=== PATIENT | male | born 1980 | race Two or more races ===

== ENCOUNTER 2025-02-09 19:43 | Inpatient (IN) | payer OTHER, MEDICAID ==
[~2025-02-09] VITALS: Ht 175.3 cm; Wt 72.7 kg
[2025-02-09] MEDS: PIPERACILLIN-TAZOB 3.375GM 100 ML IV ONE (00:10)
[2025-02-09 20:38] LABS: Hematocrit 39.9 % (41.0-53.0); Hemoglobin 13.2 g/dL (13.5-17.5); Mean Corpuscular Hemoglobin 27.7 pg (28.0-32.0); Mean Corpuscular Volume 83.8 fL (80.0-100.0); Nucleated Red Blood Cells % 0.0 %
[2025-02-09] MEDS: HYDROcodone-ACET 10/325MG TAB PO ONE (20:44)
[2025-02-09 20:47] LABS: Chloride 101 mmol/L (98-107); Potassium 3.6 mmol/L (3.5-5.1); Sodium 137 mmol/L (136-145)
[2025-02-09 20:48] LABS: Anion Gap 7 (5-15); Calcium 9.3 mg/dL (8.7-10.4); Carbon Dioxide 29 mmol/L (20-31)
[2025-02-09 20:53] LABS: BUN/Creatinine Ratio 14.2 (10.0-20.0); Blood Urea Nitrogen 18 mg/dL (9-23); Glucose 99 mg/dL (74-106)
[2025-02-09] MEDS: IOHEXOL 300 MG/ML 100ML BOTTLE IJ ONE (21:09)
--- NOTE | 2025-02-09 21:45 | DVH ---
COMPUTERIZED TOMOGRAPHY RIGHT LOWER EXTREMITY WITH CONTRAST REASON FOR EXAM: Possible septic knee joint COMPARISON: None TECHNIQUE: The exam was performed on a Multidetector scanner. Spiral scans were acquired from the dis aron right femoral diaphysis to the distal right tibial metaphysis after administration of IV contrast . 2-D coronal and sagittal reformatted images were provided. Radiation optimization: All CT scans at this facility use at least one of these dose optimization techniques: Automated exposure control mA a nd/or kV adjustment per patient size (includes targeted exams where dose is matched to clinical indic ation) or iterative reconstruction. RADIATION DOSE: CTDI: 8 mGy DLP: 485 mGy-cm FINDINGS: There is severe prepatellar bursitis. There is mild diffuse subcutaneous edema from the distal thigh to the distal calf. No other fluid collection is identified. There is no knee effusion. No acute osse ous abnormality is identified. IMPRESSION: Severe prepatellar bursitis. Given the large amount of fluid within the bursa, blind sampling by palp ation could be performed if there is clinical concern for infection. No knee effusion. No evidence of septic knee joint.
--- NOTE | 2025-02-09 22:19 | ED.PDOC ---
Musculoskeletal HPI Comments This patient is a healthy 44-year-old male who arrives to the ED today for evaluation of right knee pain and swelling that began yesterday and has continued. Patient states the event was spontaneous. Patient denies any recent trauma to the knee. Patient arrives with a an angry and swollen right knee. Vital signs were stable. Chief Complaint: Lower Extremity Time Seen by MD: 19:50 Reviewed Notes: Nurses Notes Allergies: Coded Allergies: No Known Drug Allergy (Verified Allergy, Unknown, 02/09/25) Information Source: Patient, Friend Mode of Arrival: Ambulatory Location: Right Extremity Location: Knee Timing: Days Prehospital treatment: None Severity: Moderate Able to Move Extremity: Yes Bear Weight: Limited Pain: Moderate Hand Dominance: Right Mechanism: Spontaneous Circumstances: Spontaneous Onset of Symptoms: Spontaneous Symptoms: Swelling, Pain DVT Risk Factors: NONE Past Medical History PAST MEDICAL HISTORY: Denies Surgical History: Denies all surgeries Family History Family History: Reviewed,noncontributory to illness, No family hx of Cancer, No family hx of DM, No family hx of Heart lalit, No family hx of HTN, No family hx ofKidney lalit, No family hx of Liver lalit, No family hx of Lung lalit, No family hx of Stroke Social History Smoker: Non-Smoker Alcohol: Denies ETOH Use Drugs: Denies Drug Use Lives In: Home Constitutional: denies: chills, diaphoresis, fatigue, fever, malaise, sweats, weakness, others EENTM: denies: blurred vision, double vision, ear bleeding, ear discharge, ear drainage, ear pain, ear ringing, eye pain, eye redness, hearing loss, mouth pain, mouth swelling, nasal discharge, nose bleeding, nose congestion, nose pain, photophobia, tearing, throat pain, throat swelling, voice changes, others Respiratory: denies: cough, hemoptysis, orthopnea, SOB at rest, shortness of breath, SOB with excertion, stridor, wheezing, others Cardiovascular: denies: chest pain, dizzy spells, diaphoresis, Dyspnea on exertion, edema, irregular heart beat, left arm pain, lightheadedness, palpitations, PND, syncope, others Gastrointestinal: denies: abdomen distended, abdominal pain, blood streaked bowels, constipated, diarrhea, dysphagia, difficulty swallowing, hematemesis, melena, nausea, poor appetite, poor fluid intake, rectal bleeding, rectal pain, vomiting, others Genitourinary: denies: burning, dysuria, flank pain, frequency, hematuria, incontinence, penile discharge, penile sore, pain, testicle pain, testicle swelling, urgency, others Neurological: denies: dizziness, fainting, headache, left sided numbness, left sided weakness, numbness, paresthesia, pre-existing deficit, right sided numbness, right sided weakness, seizure, speech problems, tingling, tremors, weakness, others Musculoskeletal: reports: others (Right knee pain, swelling and warmth); denies: back pain, gout, joint pain, joint swelling, muscle pain, muscle stiffness, neck pain Integumetry: denies: bruises, change in color, change in hair/nails, dryness, laceration, lesions, lumps, rash, wounds, others Allergic/Immunocompromised: denies: Difficulty Healing, Frequent Infections, Hives, Itching, others Hematologic/Lymphatic: denies: anemia, blood clots, easy bleeding, easy bruising, swollen glands, others Endocrine: denies: excessive hunger, excessive sweating, excessive thirst, excessive urination, flushing, intolerance to cold, intolerance to heat, unexplained weight gain, unexplained weight loss, others Psychiatric: denies: anxiety, bipolar disorder, depression, hopeless, panic disorder, schizophrenia, sleepless, suicidal, others Physical Exam General Appearance: Moderate Distress (Patient is a moderate distress due to right knee pain concerns.), Normal HEENT: Normal ENT Inspection, Pharynx Normal, TMs Normal Neck: Full Range of Motion, Non-Tender, Normal, Normal Inspection Respiratory: Chest Non-Tender, Lungs Clear, No Accessory Muscle Use, No Respiratory Distress, Normal Breath Sounds Cardiovascular: No Edema, No JVD, No Murmur, No Gallop, Normal Peripheral Pulses, Regular Rate/Rhythm Breast Exam: Deferred Gastrointestinal: No Organomegaly, Non Tender, No Pulsatile Mass, Normal Bowel Sounds, Soft Genitalia: Deferred Pelvic: Deferred Rectal: Deferred Extremities: Other (Right knee region displays significant edema from the distal thigh to the proximal and medial calf extending throughout the joint region of the knee. Erythema noted throughout. Tender to palpation throughout. Significant reduced range of motion. Patient can not bear weight. No lymphangitis.) Neurologic: Alert Cerebellar Function: NOT DONE Reflexes: NOT DONE Skin: Dry, Normal Color, Warm Lymphatic: No Adenopathy Was a procedure done? Was a procedure done?: No Differential Diagnosis EXT Differential Diagnosis: Cellulitis, Fracture, Sprain, Strain, Septic, Bursitis X-Ray, Labs, Meds, VS Vital Signs Date Time Temp Pulse Resp B/P (MAP) Pulse Ox O2 Delivery O2 Flow Rate FiO2 02/09/25 20:44 103 18 100 Room Air 02/09/25 20:44 97.6 103 18 116/79 (91) 100 97.6 02/09/25 19:51 98.1 101 16 120/78 100 98.1 Lab Test 02/09/25 20:28 Range/Units White Blood Count 12.5 H 4.4-10.8 10^3/uL Red Blood Count 4.76 4.5-5.90 10^6/uL Hemoglobin 13.2 L 13.5-17.5 g/dL Hematocrit 39.9 L 41.0-53.0 % Mean Corpuscular Volume 83.8 80.0-100.0 fL Mean Corpuscular Hemoglobin 27.7 L 28.0-32.0 pg Mean Corpuscular Hemoglobin Concent 33.0 32.0-36.0 g/dL Red Cell Distribution Width 13.3 11.8-14.3 % Platelet Count 213 140-450 10^3/uL Mean Platelet Volume 7.0 6.9-10.8 fL Neutrophils (%) (Auto) 83.3 H 37.0-80.0 % Lymphocytes (%) (Auto) 7.6 L 10.0-50.0 % Monocytes (%) (Auto) 7.8 0.0-12.0 % Eosinophils (%) (Auto) 1.2 0.0-7.0 % Basophils (%) (Auto) 0.1 0.0-2.0 % Neutrophils # (Auto) 10.5 H 1.6-8.6 10 ^3/uL Lymphocytes # (Auto) 0.9 0.4-5.4 10 ^3/uL Monocytes # (Auto) 1.0 0-1.3 10 ^3/uL Eosinophils # (Auto) 0.1 0-0.8 10 ^3/uL Basophils # (Auto) 0 0-0.2 10 ^3/uL Nucleated Red Blood Cells 0.0 % Sodium Level 137 136-145 mmol/L Potassium Level 3.6 3.5-5.1 mmol/L Chloride Level 101 98-107 mmol/L Carbon Dioxide Level 29 20-31 mmol/L Anion Gap 7 5-15 Blood Urea Nitrogen 18 9-23 mg/dL Creatinine 1.27 0.700-1.30 mg/dL Glomerular Filtration Rate Calc 72 >90 mL/min BUN/Creatinine Ratio 14.2 10.0-20.0 Serum Glucose 99 74-106 mg/dL Lactic Acid Level 1.3 0.4-2.0 mmol/L Calcium Level 9.3 8.7-10.4 mg/dL X-Ray, Labs, Meds, VS Comment All studies performed the ED were evaluated by me personally. Serum studies revealed a mild leukocytosis with a left shift noted. CT with contrast of the right lower extremity revealed a severe prepatellar bursitis with mild diffuse subcutaneous edema from the distal thigh to the distal calf. Due to the early onset of elevated white blood cell count and has significant joint effusion, patient will be admitted for IV antibiotics and possible orthopedic evaluation for bursal aspiration. Time of 1ST Reevaluation: 22:18 Reevaluation 1ST: Improved Consultation: PCP Patient Education/Counseling: Diagnosis, Treatment Family Education/Counseling: Diagnosis, Treatment Sepsis Sepsis Reasesment Focused Exam Orders: Laboratory Tests 02/09/25 20:28: Lactic Acid Level 1.3 Recent Procedure: No On Antibiotic Therapy: No Respiratory Rate >20: No Heart Rate >90: No Temp<36 C (96.8 F) or >38.3 C: No SBP <90 or MAP <65 mmHG: No New Acute Mental Status Change: No Is the patient on CPAP, BIPAP,: No IV fluid given: No Departure 1 Departure Time of Disposition: 22:18 Impression: Primary Impression: Bursitis of right knee Additional Impression: Leukocytosis Disposition: ADMITTED INPATIENT Condition: Stable Discharged With: Self Critical Care Note Critical Care Time?: No Stability Stability form required: No Heart Score Heart Score: Heart Score Response (Comments) Value History N/A 0 EKG N/A 0 Age N/A 0 Risk Factors N/A 0 Troponin N/A 0 Total 0 CHAS MCWILLIAMS PAC Feb 09, 2025 22:19
--- NOTE | 2025-02-09 22:59 | DVHHP2 ---
History of Present Illness Reason for Visit: Bursitis of right knee History of Present Illness The patient is a 44-year-old male who denies past medical history presented to [facility] ED with complaint of right knee pain. Patient reports he has been experiencing severe right knee pain associated with redness and sw elling, rating pain 9/10 numeric scale, getting worse that prompted this visit. Patient was seen and evaluated in the ED, laboratory data shows WBC 12.5, hemoglobin 13.2, hematocrit 39.9, platelets 213, sodium 137, potassium 3.6, BUN 18, creatinine 1.27, GFR 72, glucose 99, calcium 9.3, blood pressure 116/79, heart rate 102, temperature 97.6 F, O2 saturation 99% on room air. Right lower extremity CT revealing severe prepatellar bursitis, given the large amount of fluid within the bursa. Patient was started on IV antibiotic regimen Zosyn, please see medication orders section in the computer. On my assessment, patient denied chest pain, no headache, dizziness, diaphoresis, shortness of breaths, nausea, vomiting, fever, no chills. Patient was admitted for further evaluation and medical management. Past Medical History Denies past medical history Past Surgical History Denies all surgeries Family History Reviewed, noncontributory to the management of this case. Past Social History The patient lives at home, denies smoking, alcohol or illicit drugs abuse. Review of Systems Constitutional: No: Fever, Chills, Sweats, Weakness, Malaise, Other Eyes: No: Pain, Vision change, Conjunctivae inflammation, Eyelid inflammation, Other, Redness ENT: No: Ear pain, Ear discharge, Nose pain, Nose discharge, Nose congestion, Mouth pain, Mouth swelling, Throat pain, Throat swelling, Other Respiratory: No: Cough, Dry, Shortness of breath, SOB with excertion, Wheezing, Hemoptysis, Pleuritic Pain, Sputum, Wheezing, Other Cardiovascular: No: Chest Pain, Palpitations, Orthopnea, Paroxysmal Noc. Dyspnea, Edema, Lt Headedness, Other Gastrointestinal: No: Nausea, Vomiting, Abdominal Pain, Diarrhea, Constipation, Melena, Hematochezia, Other Genitourinary: No Dysuria, No Frequency, No Incontinence, No Hematuria, No Retention, No Other Musculoskeletal: other (Right knee pain, swelling and warmth.); No: neck pain, shoulder pain, arm pain, back pain, hand pain, leg pain, foot pain Skin: No: Rash, Lesions, Jaundice, Bruising, Other Neurological: No: Weakness, Numbness, Incoordination, Change in speech, Confusion, Seizures, Other Allergies: Coded Allergies: No Known Drug Allergy (Verified Allergy, Unknown, 02/09/25) Exam Vital Signs Vital Signs Date Time Temp Pulse Resp B/P (MAP) Pulse Ox O2 Delivery O2 Flow Rate FiO2 02/09/25 20:44 103 18 100 Room Air 02/09/25 20:44 97.6 116/79 (91) 97.6 General Appearance: Alert, Oriented X3, Cooperative, No acute distress HEENT: Atraumatic, PERRLA, EOMI, Mucous membr. moist/pink Respiratory: Clear to auscultation, Normal air movement Cardiovascular: Regular rate, Normal S1, Normal S2, No murmurs Abdominal: Normal bowel sounds, Soft, No tenderness, No hepatospenomegaly, No masses Extremities: No clubbing, No cyanosis, No edema, Normal pulses, Other (Right knee swelling/tenderness) Skin: No rashes, No breakdown, No significant lesion Neuro: Normal speech, Normal tone, Sensation intact, Cranial nerves 3-12 NL, Reflexes 2+, Other (Unsteady gait) Psych/Mental Status: Mental status NL, Mood NL Labs/Xrays Labs Test 02/09/25 20:28 Range/Units White Blood Count 12.5 H 4.4-10.8 10^3/uL Red Blood Count 4.76 4.5-5.90 10^6/uL Hemoglobin 13.2 L 13.5-17.5 g/dL Hematocrit 39.9 L 41.0-53.0 % Mean Corpuscular Volume 83.8 80.0-100.0 fL Mean Corpuscular Hemoglobin 27.7 L 28.0-32.0 pg Mean Corpuscular Hemoglobin Concent 33.0 32.0-36.0 g/dL Red Cell Distribution Width 13.3 11.8-14.3 % Platelet Count 213 140-450 10^3/uL Mean Platelet Volume 7.0 6.9-10.8 fL Neutrophils (%) (Auto) 83.3 H 37.0-80.0 % Lymphocytes (%) (Auto) 7.6 L 10.0-50.0 % Monocytes (%) (Auto) 7.8 0.0-12.0 % Eosinophils (%) (Auto) 1.2 0.0-7.0 % Basophils (%) (Auto) 0.1 0.0-2.0 % Neutrophils # (Auto) 10.5 H 1.6-8.6 10 ^3/uL Lymphocytes # (Auto) 0.9 0.4-5.4 10 ^3/uL Monocytes # (Auto) 1.0 0-1.3 10 ^3/uL Eosinophils # (Auto) 0.1 0-0.8 10 ^3/uL Basophils # (Auto) 0 0-0.2 10 ^3/uL Nucleated Red Blood Cells 0.0 % Sodium Level 137 136-145 mmol/L Potassium Level 3.6 3.5-5.1 mmol/L Chloride Level 101 98-107 mmol/L Carbon Dioxide Level 29 20-31 mmol/L Anion Gap 7 5-15 Blood Urea Nitrogen 18 9-23 mg/dL Creatinine 1.27 0.700-1.30 mg/dL Glomerular Filtration Rate Calc 72 >90 mL/min BUN/Creatinine Ratio 14.2 10.0-20.0 Serum Glucose 99 74-106 mg/dL Lactic Acid Level 1.3 0.4-2.0 mmol/L Calcium Level 9.3 8.7-10.4 mg/dL PATIENT: BELEN COOK ACCT: [id number] UNIT: [id number] : 1980 LOC: ER ROOM / BED: / AGE / SEX: 44 / M ADM STATUS: REG ER SERVICE 20 ORDERING PHYSICIAN: CHAS MCWILLIAMS PAC PROCEDURE(s): RTLEXW - RT LOWER EXTREMITY W CON REASON: Possible septic knee joint ORDER NUMBER(s): [id number], ACCESSION NUMBER(s): [id number] COMPUTERIZED TOMOGRAPHY RIGHT LOWER EXTREMITY WITH CONTRAST REASON FOR EXAM: Possible septic knee joint COMPARISON: None TECHNIQUE: The exam was performed on a Multidetector scanner. Spiral scans were acquired from the distal right femoral diaphysis to the distal right tibial metaphysis after administration of IV contrast. 2-D coronal and sagittal reformatted images were provided. Radiation optimization: All CT scans at this facility use at least one of these dose optimization techniques: Automated exposure control mA and/or kV adjustment per patient size (includes targeted exams where dose is matched to clinical indication) or iterative reconstruction. RADIATION DOSE: CTDI: 8 mGy DLP: 485 mGy-cm FINDINGS: There is severe prepatellar bursitis. There is mild diffuse subcutaneous edema from the distal thigh to the distal calf. No other fluid collection is identified. There is no knee effusion. No acute osseous abnormality is identified. IMPRESSION: Severe prepatellar bursitis. Given the large amount of fluid within the bursa, blind sampling by palpation could be performed if there is clinical concern for infection. No knee effusion. No evidence of septic knee joint. SEPSIS Sepsis Screen Date sepsis recognized/suspect: Feb 09, 2025 Time Sepsis recognized/suspect: 1952 Recent Procedure: No On Antibiotic Therapy: No Respiratory Rate >20: No Heart Rate >90: No Temp<36 C (96.8 F) or >38.3 C: No SBP <90 or MAP <65 mmHG: No New Acute Mental Status Change: No Is the patient on CPAP, BIPAP,: No IV fluid challenge completed?: No Physician Orders Heplock Iv (02/09/25 ) Rt Lower Extremity W Con (02/09/25 20:21) * Orthopedic Consult (02/09/25 22:54) Zosyn Extended Infusion (02/10/25 06:00) Zosyn Extended Infusion (02/09/25 23:00) Hydromorphone Injection (Dilaudid Inject (02/09/25 23:00) Admit (02/09/25 22:54) Allergies (02/09/25 22:54) Code Status (02/09/25 22:54) 0.9% Ns 1000 Ml (02/09/25 23:00) Oxygen Per Hour (02/09/25 22:54) Hydrocodone-Acet 5/325mg Tab ([place] 5/32 (02/09/25 23:00) Ondansetron Hcl (Zofran) (02/09/25 23:00) Docusate Sodium Capsule (Colace Capsule) (02/09/25 23:00) Complete Blood Count (02/10/25 04:00) Comprehensive Metabolic Panel (02/10/25 04:00) Cardiac Diet-2gna,Lofat,Lochol (02/10/25 Breakfast) Vital Signs Date Time Temp Pulse Resp B/P (MAP) Pulse Ox O2 Delivery O2 Flow Rate FiO2 02/09/25 20:44 103 18 100 Room Air 02/09/25 20:44 97.6 103 18 116/79 (91) 100 97.6 02/09/25 19:51 98.1 101 16 120/78 100 98.1 Laboratory Tests Test 02/09/25 20:28 Lactic Acid Level 1.3 mmol/L (0.4-2.0) White Blood Count 12.5 10^3/uL (4.4-10.8) H Assessment/Plan Assessment/Plan Bursitis of right knee Right knee pain Leukocytosis, unspecified Plan 1. Admit to med surge unit 2. Breathing treatment 3. Pain control management 4. IV antibiotic management 5. Management of fluids and electrolytes 6. Consultation for orthopedic surgery 7. Diagnostic test right lower extremity CT 8. DVT prophylaxis-on SCDs 9. Repeat labs CBC, CMP in a.m. 10. Continue with current medical management 11. Treatment plan discussed with patient and RN. Patient verbalized understanding. Plan discussed with: Patient, Other (RN) My Orders Orders - ARON RENTERIA DNP Procedure Category Date Status Time * Orthopedic Consult CONS 02/09/25 Verified 22:54 Zosyn Extended PHA 02/10/25 Verified Infusion 06:00 Zosyn Extended PHA 02/09/25 Verified Infusion 23:00 Hydromorphone PHA 02/09/25 Verified Injection (Dilaudid 23:00 Admit ADMIT 02/09/25 Verified 22:54 Allergies WILMER 02/09/25 Verified 22:54 Code Status CODE 02/09/25 Verified 22:54 0.9% Ns 1000 Ml PHA 02/09/25 Verified 23:00 Oxygen Per Hour RT 02/09/25 Verified 22:54 Hydrocodone-Acet PHA 02/09/25 Verified 5/325mg Tab ([place] 23:00 Ondansetron Hcl PHA 02/09/25 Verified (Zofran) 23:00 Docusate Sodium PHA 02/09/25 Verified Capsule (Colace 23:00 Complete Blood Count LAB 02/10/25 Verified 04:00 Comprehensive LAB 02/10/25 Verified Metabolic Panel 04:00 Cardiac DIET 02/10/25 Verified Diet-2gna,Lofat,Lochol Breakfast Problem List: (1) Bursitis of right knee (2) Right knee pain (3) Leukocytosis, unspecified Date of Service: Feb 09, 2025 Billing Provider: ARON RENTERIA DNP Common Visit Codes: [id number] INP/OBS CARE (HIGH) ARON RENTEIRA DNP Feb 09, 2025 22:59
[2025-02-09] MEDS ORDERED: ACETAMINOPHEN 325 MG TAB PO PRN (23:00)
[2025-02-09] MEDS ORDERED: NITROGLYCERIN 0.4 MG SL TAB SL PRN (23:00)
[2025-02-09] MEDS ORDERED: DOCUSATE SOD 100 MG CAP PO PRN (23:00)
[2025-02-09] MEDS ORDERED: HYDROmorphone HCL 2 MG/ML VL/or syr IV PRN (23:00)
[2025-02-09] MEDS ORDERED: HYDROcodone-ACET 5/325MG TAB PO PRN (23:00)
[2025-02-09] MEDS ORDERED: ONDANSETRON HCL 4 MG/2 ML VIAL IV PRN (23:00)
[2025-02-10 00:03] VITALS: PULSE 94; RESP 18; O2SAT 100
[2025-02-10] MEDS: SODIUM CHLORIDE 0.9% 1,000 ML IV SCH (00:10)
[2025-02-10 01:25] VITALS: BP 116/78; PULSE 87; RESP 17; TEMP 97.9; O2SAT 100
[2025-02-10 04:57] LABS: Albumin 4.0 g/dL (3.2-4.8); Anion Gap 10 (5-15); BUN/Creatinine Ratio 13.9 (10.0-20.0); Blood Urea Nitrogen 15 mg/dL (9-23); Calcium 9.4 mg/dL (8.7-10.4); Carbon Dioxide 28 mmol/L (20-31); Chloride 99 mmol/L (98-107); Sodium 137 mmol/L (136-145); Total Protein 7.2 g/dL (5.7-8.2)
[2025-02-10 04:58] LABS: Hematocrit 38.5 % (41.0-53.0); Hemoglobin 13.2 g/dL (13.5-17.5); Mean Corpuscular Hemoglobin 28.4 pg (28.0-32.0); Mean Corpuscular Volume 82.9 fL (80.0-100.0); Nucleated Red Blood Cells % 0.0 %
[2025-02-10 04:59] VITALS: BP 112/60; PULSE 94; RESP 16; TEMP 98; O2SAT 100
[2025-02-10] MEDS: PIPERACILLIN-TAZOB 3.375GM 100 ML IV SCH (05:00)
[2025-02-10 05:21] LABS: Alanine Aminotransferase 77 U/L (7-40); Alkaline Phosphatase 133 U/L (46-116); Bilirubin, Total 0.2 mg/dL (0.2-1.0); Glucose 116 mg/dL (74-106); Potassium 3.1 mmol/L (3.5-5.1)
[2025-02-10 09:08] VITALS: BP 109/68; PULSE 94; RESP 20; TEMP 98.4; O2SAT 100
== END 2025-02-10 09:18 | disposition left against medical advice (07) | DRG 558 ==
LOC: ER 19:43 → OVERFLOW 22:54
PROVIDERS: ADMIT Nurse Practitioner Family; ATTEND Nurse Practitioner Family
DX: M70.51 Other bursitis of knee, right knee (principal); D72.829 Elevated white blood cell count, unspecified; Y93.89 Activity, other specified; Z53.29 Procedure and treatment not carried out because of patient's decision for other reasons
CPT/HCPCS: 36415; 73701; 80048; 80053; 83605; 85025; 87040; 96365; G0378; J2543